=== PATIENT | male | born 1990 | race Caucasian/White ===

== ENCOUNTER 2016-05-03 11:04 | Emergency (ER) | payer OTHER ==
[~2016-05-03 11:04] MED LIST: CLEOCIN HCL300 M1 PO; HYDROCODONE/APA1 T16 PO; NAPROSYN500 MG PO
== END 2016-05-03 11:06 | disposition home or self-care (01) ==
LOC: CED 11:04
DX: K04.7 Periapical abscess without sinus (principal); L03.211 Cellulitis of face; F17.200 Nicotine dependence, unspecified, uncomplicated
CPT/HCPCS: 99282